=== PATIENT | female | born 1985 | race American Indian/Alaskan Native ===

== ENCOUNTER 2018-12-05 23:42 | Emergency (ER) | payer OTHER ==
[2018-12-06 00:38] LABS: Bacteria,Urine 1+ /HPF (Negative); Bilirubin,Urine NEG (Negative); Blood,Urine NEG (Negative); Color,Urine Yellow (Yellow); Mucus,Urine FEW /HPF; Protein,Urine <15 mg/dL mg/dL (Negative)
[2018-12-06 00:40] LABS: HCG Qualitative,Urine Negative (Negative)
--- NOTE | 2018-12-06 02:49 | Emergency Department Report ---
ED Female HPI - General Chief complaint: Abdominal Pain Stated complaint: LOWER BACK PAIN ABD PAIN Time Seen by Provider: 12/06/18 02:44 Source: patient Mode of arrival: Ambulatory Limitations: No Limitations - History of Present Illness Initial comments: 33-year-old -[place] female presents to the emergency room lower back pain and abdominal pain she's had for a while reports that the pain is intensified in the last 5 days. Patient states that the pain in her abdomen is sharp and nothing makes it worse nothing makes it better. Patient has not tried anything for pain. She denies any vaginal discharge or vaginal bleeding reports she has spotted Off and have a period every 5 months. She also complains of lower back pain is achy. 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 Patient denies any trauma. MD Complaint: pelvic pain -: days(s) (5), month(s) Quality: sharp (abdominal pain), aching (lower back pain) Consistency: intermittent Improves with: none Worsens with: none Are you Now?: No Associated Symptoms: denies: nausea/vomiting, fever/chills, dysuria - Related Data Sexually active: Yes Previous Rx's Medication Instructions Recorded Last Taken Type Ibuprofen [Motrin 600 MG tab] 600 mg PO Q8H #21 tablet 12/06/18 Unknown Rx Allergies Allergy/AdvReac Type Severity Reaction Status Date / Time No Known Allergies Allergy Unverified 12/06/18 00:03 ED Review of Systems ROS: Stated complaint: LOWER BACK PAIN ABD PAIN Other details as noted in HPI Comment: All other systems reviewed and negative Constitutional: denies: chills, fever Eyes: denies: eye pain, eye discharge, vision change ENT: denies: ear pain, throat pain Respiratory: denies: cough, shortness of breath, wheezing Cardiovascular: denies: chest pain, palpitations Endocrine: no symptoms reported Gastrointestinal: other (pelvic pain). denies: nausea, vomiting Genitourinary: denies: urgency, dysuria, discharge Musculoskeletal: back pain Skin: denies: rash, lesions Neurological: denies: headache, weakness, paresthesias Psychiatric: denies: anxiety, depression Hematological/Lymphatic: denies: easy bleeding, easy bruising ED Past Medical Hx - Past Medical History Previous Medical History?: No - Surgical History Past Surgical History?: No - Social History Smoking Status: Never Smoker Substance Use Type: None - Medications Home Medications: Home Medications Medication Instructions Recorded Confirmed Last Taken Type Ibuprofen [Motrin 600 MG tab] 600 mg PO Q8H #21 tablet 12/06/18 Unknown Rx ED Physical Exam - General Limitations: No Limitations General appearance: alert, in no apparent distress - Head Head exam: Present: atraumatic, normocephalic - Eye Eye exam: Present: normal appearance - ENT ENT exam: Present: mucous membranes moist - Neck Neck exam: Present: normal inspection - Cardiovascular Cardiovascular Exam: Present: regular rate, normal rhythm. Absent: systolic murmur, diastolic murmur, rubs, gallop - GI/Abdominal GI/Abdominal exam: Present: soft, distended, tenderness (llq), normal bowel sounds - Extremities Exam Extremities exam: Present: normal inspection, full ROM - Back Exam Back exam: Present: full ROM - Expanded Back Exam Expanded Back exam: Negative Straight Leg Raising: Right, Left - Neurological Exam Neurological exam: Present: alert, oriented X3 - Psychiatric Psychiatric exam: Present: normal affect, normal mood - Skin Skin exam: Present: warm, dry, intact, normal color. Absent: rash ED Course Vital Signs 12/05/18 23:57 Temperature 98 F Pulse Rate 76 Respiratory 18 Rate Blood Pressure 143/66 O2 Sat by Pulse 100 Oximetry ED Medical Decision Making - Radiology Data Radiology results: report reviewed Patient: KALEB HAWK MR#: [id number] [birth year] : 1985 Acct:[id number] Age/Sex: 33 / F ADM Date: 12/05/18 Loc: ED Attending Dr: Ordering Physician: VAHID SANTA Date of Service: 12/06/18 Procedure(s): US transvaginal Accession Number(s): [id number] cc: VAHID SANTA PROCEDURE: US TRANSVAGINAL TECHNIQUE: Real-time transabdominal sonography in multiple planes of the pelvis was performed. The pelvic structures, especially the ovaries, were not optimally visualized. Transvaginal sonography was then performed to better evaluate the structures and/or abnormalities described below with image documentation. HISTORY: pelvic pain COMPARISONS: None . FINDINGS: UTERUS Size: 6.6 x 3.1 x 4 cm. Endometrial thickness: 4 mm. Orientation: anteverted. Cervix: There are a few nabothian cysts in the cervix. Fibroids/masses: None. RIGHT Ovary: 2.16 x 1.8 x 1.9 cm. Appearance: Small follicular cyst is identified.. LEFT Ovary: 2.2 x 1.5 x 2.2 cm. Appearance: Small follicular cyst on the left ovary. Pelvic fluid: None. Other: None. IMPRESSION: The uterus and both ovaries have a normal appearance. There are a few small in both bases cervix. Small follicular cysts identified on each ovary.. This document is electronically signed by Gretta Figueroa DO., December 06 2018 03:46:45 AM ET Transcribed By: [facility] Dictated By: GRETTA FIGUEROA MD Electronically Authenticated By: GRETTA FIGUEROA MD Signed Date/Time: 12/06/18347 DD/ 8 TD/TT: 12/06/18339 - Medical Decision Making Patient has been evaluated by this provider in fast track. She has been ordered ibuprofen for pain management. Ultrasound of pelvic complete with transvaginal shows patient has follicular cysts in both ovaries. Discussed the patient she needs to follow-up with a [facility] provider. Patient is to take ibuprofen for her back pain. Critical care attestation.: If time is entered above; I have spent that time in minutes in the direct care of this critically ill patient, excluding procedure time. ED Disposition Clinical Impression: Follicular cystic ovary disease Lower back pain Qualifiers: Chronicity: acute Back pain laterality: unspecified Sciatica presence: without sciatica Qualified Code(s): M54.5 - Low back pain Disposition: - TO HOME OR SELFCARE Is pt being admited?: No Does the pt Need Aspirin: No Condition: Stable Instructions: Abdominal Pain (ED) Additional Instructions: Take pain medication as needed. Is very important for you to follow up with an [facility]. As you have system both ovaries. Prescriptions: Ibuprofen [Motrin 600 MG tab] 600 mg PO Q8H #21 tablet Referrals: TRACI SCOTT MD [Primary Care Provider] - 3-5 Days Forms: Work/School Release Form(ED)
[2018-12-06] MEDS ORDERED: IBUPROFEN PO ONE (02:55)
--- NOTE | 2018-12-06 03:48 | Ultrasound Report ---
PROCEDURE: US PELVIC COMPLETE TECHNIQUE: Real-time transabdominal sonography in multiple planes of the pelvis was performed. The p elvic structures, especially the ovaries, were not optimally visualized. Transvaginal sonography was then performed to better evaluate the structures and/or abnormalities described below with image docu mentation. HISTORY: pelvic pain COMPARISONS: None . FINDINGS: UTERUS Size: 6.6 x 3.1 x 4 cm. Endometrial thickness: 4 mm. Orientation: anteverted. Cervix: There are a few nabothian cysts in the cervix. Fibroids/masses: None. RIGHT Ovary: 2.16 x 1.8 x 1.9 cm. Appearance: Small follicular cyst is identified.. LEFT Ovary: 2.2 x 1.5 x 2.2 cm. Appearance: Small follicular cyst on the left ovary. Pelvic fluid: None. Other: None. IMPRESSION: The uterus and both ovaries have a normal appearance. There are a few small in both base s cervix. Small follicular cysts identified on each ovary.. This document is electronically signed by Gretta Figueroa DO., December 06 2018 03:46:09 AM ET
[2018-12-06 05:00] VITALS: BP 141/75
== END 2018-12-06 05:00 | disposition home or self-care (01) ==
LOC: ED 23:42
DX: N83.02 Follicular cyst of left ovary (principal); N83.01 Follicular cyst of right ovary; M54.5 Low back pain
CPT/HCPCS: 76830; 76856; 81001; 81025; 99284